=== PATIENT | female | born 1970 | race Hispanic/Latino ===

== ENCOUNTER 2018-05-26 00:08 | Emergency (ER) | payer SELFPAY ==
[~2018-05-26] VITALS: Ht 149.9 cm; Wt 54.4 kg
[2018-05-26] MEDS ORDERED: ONDANSETRON HCL 4 MG ORAL DISINTEGRATING TAB PO ONE (00:30)
[2018-05-26] MEDS ORDERED: PEPCID20 MG PO (00:43)
[2018-05-26] MEDS ORDERED: ZOFRAN8 MG PO (00:43)
[2018-05-26] MEDS ORDERED: PANTOPRAZOLE SO40 MG PO (00:43)
[2018-05-26 01:32] VITALS: BP 139/81
== END 2018-05-26 01:20 | disposition home or self-care (01) ==
LOC: FSED 00:08
DX: R11.2 Nausea with vomiting, unspecified (principal); I10 Essential (primary) hypertension
CPT/HCPCS: 80053; 81003; 81025; 85025; 99283